=== PATIENT | female | born 2000 | race Hispanic/Latino ===

== ENCOUNTER 2020-07-13 14:59 | Outpatient (CLI) | payer MEDICAID ==
[2020-07-13 16:26] VITALS: BP 132/72
== END 2020-07-13 17:09 | disposition home or self-care (01) ==
LOC: TRG 14:59 → APU 15:00 → TRG 17:09
PROVIDERS: ATTEND Obstetrics & Gynecology
DX: O42.92 Full-term premature rupture of membranes, unspecified as to length of time between rupture and onset of labor (principal); Z3A.39 39 weeks gestation of pregnancy
CPT/HCPCS: 59025